=== PATIENT | male | born 1990 ===

== ENCOUNTER 2021-05-08 16:41 | Emergency (ER) | payer SELFPAY ==
[~2021-05-08] VITALS: Ht 175.3 cm; Wt 80.0 kg
[2021-05-08 16:50] VITALS: BP 139/78
== END 2021-05-08 16:59 | disposition home or self-care (01) ==
LOC: ER 16:42
DX: F10.10 Alcohol abuse, uncomplicated (principal); Y90.9 Presence of alcohol in blood, level not specified
CPT/HCPCS: 99281

== ENCOUNTER 2021-05-14 08:07 | Emergency (ER) | payer SELFPAY ==
[~2021-05-14] VITALS: Ht 175.3 cm; Wt 82.7 kg
[2021-05-14 08:15] VITALS: BP 121/70
== END 2021-05-14 12:22 | disposition left against medical advice (07) ==
LOC: ER 08:08
DX: M79.643 Pain in unspecified hand (principal); Z53.21 Procedure and treatment not carried out due to patient leaving prior to being seen by health care provider